=== PATIENT | male | born 1945 | race Caucasian/White ===

== ENCOUNTER 2024-10-09 19:27 | Emergency (ER) | payer OTHER, SELFPAY ==
[2024-10-09 19:29] VITALS: BP 136/64; PULSE 102; RESP 18; TEMP 36.9; O2SAT 99
[2024-10-09] MEDS: 0.9% Normal Saline (1000mL) 1,000 ML 1000 ML IV (20:26)
[2024-10-09] MEDS: Ondansetron 4 MG/2 ML Vial IV (20:27)
--- NOTE | 2024-10-09 20:30 | EX.ED.DYSGE1 ---
HPI History of Present Illness Chief Complaint: Nausea/Vomiting/Diarrhea Informant: patient and family Narrative Narrative: Presents here with granddaughter chills diarrhea and vomiting started 2 days ago 3 PM in the afternoon. Today started with chills shortly afterwards diarrhea then vomiting. No hematemesis hematochezia or melena. He states too many to count he had least 4 episodes diarrhea today and last time was an hour prior to arrival. He has had vomiting also every time he has diarrhea. No reports he had a bladder mass removal at the [place] over a month ago, he failed Hill catheter removal twice last time was September 07. He is post to return yesterday in [place] for another trial off Hill however did not feel well. He took antibiotics starting Tuesday for preparation for removal of the Hill of Macrobid. He was not on antibiotics prior to that. No fevers. No cough. He is on Flomax. Prior similar symptoms: No PFSH PFSH Medical History Tumor Home Medications ?Medication ?Instructions ?Recorded ?Last Taken ?Type cefdinir 300 mg capsule 300 mg PO Q12H #14 caps 10/09/24 Unknown Rx ondansetron 4 mg disintegrating 4 mg PO Q8H PRN PRN Nausea #10 tabs 10/09/24 Unknown Rx tablet Allergy/AdvReac Type Severity Reaction Status Date / Time No Known Allergies Allergy Verified 10/09/24 19:31 Social History Smoking Status: Unknown if ever smoked [facility] ED Constitutional Constitutional ED: Reports chills; Denies fever(s) or sweats ENT ENT ED: Denies sore throat Cardiovascular Cardiovascular: Denies chest pain, leg edema, palpitations or racing heartbeat Respiratory/Chest Respiratory/Chest: Denies cough, dyspnea or dyspnea on exertion Gastrointestinal Gastrointestinal: Reports diarrhea, nausea and vomiting; Denies abdominal pain Genitourinary Genitourinary ED: Reports other Details: Hill catheter draining appropriately Musculoskeletal Musculoskeletal: Denies back pain, extremity pain or neck pain Integumentary Denies rash or wounds Neurologic Neurologic: Denies headache(s), paresthesias or weakness EXAM Physical Exam Const Vital Signs: 10/09/24 19:29 10/09/24 20:34 10/09/24 20:59 Temperature 98.4 F 99.4 F H Temperature Source Oral Oral Pulse Rate 102 H 81 Respiratory Rate 18 18 Blood Pressure 136/64 H 134/72 H 144/67 H Blood Pressure Mean 88 92 92 Pulse Ox 99 97 Oxygen Delivery Method Room Air Room Air 10/09/24 23:30 Temperature 99.4 F H Temperature Source Pulse Rate 81 Respiratory Rate 18 Blood Pressure 144/67 H Blood Pressure Mean 92 Pulse Ox 97 Oxygen Delivery Method Positive well nourished and well developed General Appearance ED: well developed and NAD HEENT HEENT Narrative: Mild dry mucosal membranes. normocephalic and atraumatic Eyes General Eye ED: Yes normal appearance of both eyes Neck full ROM Chest Wall Chest: Negative for tenderness Resp normal respiratory effort and normal air movement Effort and Inspection: symmetric chest movement; Negative for respiratory distress Cardio regular rate, regular rhythm and no murmurs Peripheral Pulses: pulses 2+ throughout GI normal to inspection, nondistended, normoactive bowel sounds and non-tender Palpation: Negative for guarding or rebound tenderness present Narrative: Hill catheter bag with dark color yellow urine Extremity normal to inspection General Extremety ED: Negative for edema or tenderness General Extremity: Negative for edema Neuro oriented x3 and no sensory deficits noted Sensorium / Orientation: awake and alert Skin no rashes or lesions noted and no wounds MDM MDM MDM Narrative Medical decision making narrative: Interventions / MDM: Differential diagnosis: Dehydration, acute on chronic renal sufficiency, complicated UTI, Hill catheter Diagnosis considered but do not suspect: N/A My EKG interpretation: N/A Imaging independently reviewed and interpreted by myself: N/A External documents reviewed: N/A Test considered but not ordered:N/A ED course: Mild dry mucosal membranes vomiting diarrhea for 2 days. IV established for fluids. Will check labs electrolytes urine and urine culture will be ordered. Stool studies ordered if obtained through the ED. 2205: Clinically feeling better. Unable to provide stool sample. White count 18 hemoglobin 11.2. Creatinine 2.28 GFR of 28 there is no old labs in the system. I attempted [facility] also no records[facility] Reports his kidney function is half the normal level as he was near dialysis in 2010. He does not know his creatinine or current clearance numbers. Suspect there is some slight worsening insufficiency as he has had vomiting diarrhea for couple days. I will give additional liter of fluids he is requesting p.o. fluids which he will be challenged. Urine was pending. Urine with noted infection. Culture sent. Given IV Rocephin. I did discuss with patient and granddaughter there was plan for trial removal yesterday, discussed can remove and leave out if he gets worsening to return for replacement of the Hill catheter. They are hesitant at this time as his granddaughter works tomorrow. They are concerned that nobody will take him back to the hospital. Therefore they elect for Hill exchange. This was ordered. Meds to bed with his antibiotics and Zofran. He is tolerating oral fluids on reevaluation. He has had no additional diarrhea for stools to be sent. Return precaution discussed. All questions were answered. Re-evaluation: stable Disposition discussed with patient/family/significant other: Patient and granddaughter Case discussed with consulting clinician: N/A This note was generated with [employer] dictation software. It may contain incorrect words, spelling, and punctuation that were not noted in checking the note before signing. Lab Data Attestation: I reviewed the patient's lab results. Labs: Laboratory Results - last 24 hr 10/09/24 10/09/24 19:50 21:48 WBC 18.7 H RBC 3.61 L Hgb 11.2 L Hct 33.4 L MCV 92.5 MCH 31.0 MCHC 33.5 RDW Std Deviation 51.7 H RDW Coeff of Priti 15.2 H Plt Count 364 MPV 9.5 Immature Gran % (Auto) 0.700 Neut % (Auto) 80.1 H Lymph % (Auto) 7.0 L [place] % (Auto) 11.7 H Eos % (Auto) 0.2 Baso % (Auto) 0.3 Absolute Neuts (auto) 15.0 H Absolute Lymphs (auto) 1.30 Nucleated RBC % 0 Platelet Estimate ADEQUATE Sodium 138 Potassium 4.5 Chloride 105 Carbon Dioxide 16.5 L Anion Gap 17 H BUN 37 H Creatinine 2.28 H Estim Creat Clear Calc 28.52 L Est GFR (MDRD) Non-Af 28 L BUN/Creatinine Ratio 16.2 Glucose 127 H Calcium 9.5 Urine Color Yellow Urine Clarity Cloudy Urine pH 5.0 Ur Specific [place] 1.025 Urine Protein 100 H Urine Glucose (UA) Normal Urine Ketones Negative Urine Occult Blood 250 H Urine Nitrite Negative Urine Bilirubin Negative Urine Urobilinogen Normal Ur Leukocyte Esterase 500 H Urine RBC 25-50 SEEN Urine WBC 50-100 SEEN Ur Squamous Epith Cells 0-5 SEEN Amorphous Sediment 2+ Urine Bacteria 2+ Hyaline Casts 0-5 SEEN Urine Mucus 0 SEEN Discharge Plan Triage Chief Complaint: Nausea/Vomiting/Diarrhea ED Provider: Roe Luther Dx/Rx/DC Orders Clinical Impression: Acute UTI, Hill catheter present, Acute on chronic renal insufficiency, Dehydration, Nausea vomiting and diarrhea Instructions: Urinary Tract Infections in Men, ED Hill Catheter, Care Prescriptions: New ondansetron 4 mg tablet,disintegrating 4 mg PO Q8H PRN PRN (Reason: Nausea) Qty: 10 0RF cefdinir 300 mg capsule 300 mg PO Q12H Qty: 14 0RF [facility]: [facility] [Primary Care Provider] - Activity Restrictions/Additional Instructions: Urine noted infection culture pending status post IV Rocephin. Hill catheter was exchanged. Your creatinine today 2.28 with GFR of 28. No old for comparison you report history of chronic kidney disease with half the function. You were given total 2 L of fluid in the ED. Continue oral fluids for hydration. Take and finish antibiotic prescribed you Zofran as needed for nausea and vomiting. Follow-up with your doctors to recheck your labs and symptoms. Print Language: Uzbek Disposition Disposition: Home, Self Care
[2024-10-09 20:34] VITALS: BP 134/72; PULSE 81; RESP 18; TEMP 37.4; O2SAT 97; BMI 35.4
[2024-10-09 20:39] LABS: Basophil# 0.05 X10^3/uL; Basophil% 0.3 % (0-1); Eosinophil# 0.04 X10^3/uL; Eosinophils% 0.2 % (0-5); Hematocrit 33.4 % (40-54); Hemoglobin 11.2 g/dL (13.0-16.5); Mean Corp Hgb Conc 33.5 g/dL (32-36); Mean Corpuscular Volume 92.5 fL (80-94); Mean Platelet Vol. 9.5 fl (6.2-12.0); Monocyte# 2.18 X10^3/uL; Monocyte% 11.7 % (0-10); NRBC Flagged by Analyzer 0 % (0-5); Neutrophil # 14.95 X10^3/uL (2.7-7.7); Neutrophil % 80.1 % (47-70); POSITIVE DIFFERENTIAL YES; Platelet Count 364 K/mm3 (150-450); RBC Distribution Width CV 15.2 % (11.6-14.6); RBC Distribution Width SD 51.7 fl (35.1-43.9); Red Blood Count 3.61 M/mm3 (4.6-6.2); White Blood Count 18.7 K/mm3 (4.4-11.0)
[2024-10-09 20:40] LABS: Differential Indicated SCAN CRITERIA MET
[2024-10-09 20:59] VITALS: BP 144/67
[2024-10-09 21:10] LABS: Anion Gap 17 (5-15); BUN 37 mg/dL (4-19); BUN/Creat Ratio 16.2 RATIO (10-20); Calcium,Total 9.5 mg/dL (7.6-11.0); Carbon Dioxide 16.5 mmol/L (21.0-32.0); Chloride 105 mmol/L (98-108); Creatinine, Serum 2.28 mg/dL (0.70-1.20); EST Glomerular Filtration Rate 28 (>60); Estimated Creatinine Clearance 28.52 ml/min (50-250); Glucose 127 mg/dL (70-99); Potassium 4.5 mmol/L (3.3-5.1); Sodium Level 138 mmol/L (133-145)
[2024-10-09 21:49] LABS: Platelet Estimate ADEQUATE (ADEQ)
[2024-10-09 21:51] LABS: Mucous, Urine 0 SEEN /hpf (<or=2+)
[2024-10-09 21:55] LABS: Color, Urine Yellow (Yellow); Glucose, Dipstick Normal (Normal); Ketone-Dipstick Negative (Negative); Leukocyte Esterase-Dipstick 500 /ul (Negative); Nitrite-Dipstick Negative (Negative); Occult Blood-Urine 250 /ul (Negative); Protein-Dipstick 100 mg/dl (Negative); Specific Gravity, Urine 1.025 (1.002-1.030); Urine Bilirubin Dipstick Negative (Negative); Urine Clarity Cloudy (Clear); Urine Urobilinogen Normal (Normal)
[2024-10-09 22:12] LABS: Bacteria 2+ /hpf (None Seen); White Blood Cells 50-100 SEEN /hpf (0-5)
[2024-10-09 22:13] LABS: Hyaline Cast 0-5 SEEN /lpf (0-5); Red Blood Cells-Urine 25-50 SEEN /hpf (0-5); Squamous Epithelial Cells - UA 0-5 SEEN /hpf (0-5)
[2024-10-09 22:14] LABS: Amorphous Sediment 2+
[2024-10-09] MEDS: 0.9% Normal Saline (1000mL) 1,000 ML 999 ML IV (22:26)
[2024-10-09] MEDS: Ceftriaxone 1 GM/50 ML BAG IV (22:59)
[2024-10-09 23:30] VITALS: BP 144/67; PULSE 81; RESP 18; TEMP 37.4; O2SAT 97
== END 2024-10-10 00:01 | disposition home or self-care (01) ==
PROVIDERS: Emergency Provider Emergency Medicine; Visit Provider Emergency Medicine
DX: N39.0 Urinary tract infection, site not specified (principal); R11.2 Nausea with vomiting, unspecified; N28.9 Disorder of kidney and ureter, unspecified; R19.7 Diarrhea, unspecified; E86.0 Dehydration
CPT/HCPCS: 51702; 80048; 81001; 85025; 96365; 96375; 96376; 99283; A4216; J2405